=== PATIENT | male | born 1965 | race Caucasian/White ===

== ENCOUNTER 2021-02-21 17:30 | Emergency (ER) | payer SELFPAY ==
[~2021-02-21] VITALS: Ht 162.6 cm; Wt 54.5 kg
[2021-02-21 18:13] VITALS: BP 152/86
[2021-02-21] MEDS ORDERED: IV NORMAL SALINE 500ML BAG 500 ML IV ONE (18:30)
[2021-02-21] MEDS ORDERED: fentaNYL PF VIAL 100 MCG/2 ML VIAL IVP ONE (18:30)
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
[2021-02-21 19:00] LABS: BASO % 1 % (0-3); EOS # 0.2 x10^3/uL (0.0-0.7); EOS % 4 % (0-3); HEMATOCRIT 41.3 % (39.0-53.0); HEMOGLOBIN 14.1 g/dL (13.0-17.5); LYMPH # 1.9 x10^3/uL (1.0-4.8); LYMPH % 34 % (24-48); MEAN CORPUSCULAR HEMOGLOBIN 32 pg (25-35); MEAN CORPUSCULAR HGB CONC 34 g/dL (31-37); MEAN CORPUSCULAR VOLUME 93 fL (79-100); MONO # 0.6 x10^3/uL (0.0-1.1); MONO % 10 % (0-9); NEUT # 2.9 x10^3/uL (1.8-7.7); NEUT % 52 % (31-73); PLATELET COUNT 204 x10^3/uL (140-400); RED BLOOD COUNT 4.45 x10^6/uL (4.30-5.70); RED CELL DISTRIBUTION WIDTH 12.7 % (11.5-14.5); WHITE BLOOD COUNT 5.6 x10^3/uL (4.0-11.0)
[2021-02-21 19:06] LABS: CALCIUM 8.5 mg/dL (8.5-10.1); CREATININE 0.9 mg/dL (0.7-1.3); GFR 87.9; POTASSIUM 3.2 mmol/L (3.5-5.1)
[2021-02-21 19:09] LABS: PROTHROMBIN TIME PATIENT 12.3 SEC (11.7-14.0)
[2021-02-21 19:12] LABS: ALBUMIN 3.6 g/dL (3.4-5.0); ALBUMIN/GLOBULIN RATIO 1.2 (1.0-1.7); TOTAL BILIRUBIN 0.4 mg/dL (0.2-1.0); TOTAL PROTEIN 6.5 g/dL (6.4-8.2)
[2021-02-21] MEDS ORDERED: ALBU2.5V8 INH (19:20)
[2021-02-21] MEDS ORDERED: CONTRAST GIVEN. MC PRN (19:30)
[2021-02-21] MEDS ORDERED: IOHEXOL 300 MG/ML 100ML VIAL. IV ONE (19:30)
[2021-02-21] MEDS ORDERED: POTASSIUM CHLORIDE 20 MEQ TABLET.ER. PO ONE (19:45)
--- NOTE | 2021-02-21 20:11 | RAD ---
Exam: CT of abdomen and pelvis with contrast INDICATION: Left testicle and groin pain TECHNIQUE: Sequential axial images through the abdomen and pelvis obtained following the administrati on of 75 mL of Omni 300 IV contrast. Sagittal and coronal reformatted images were reconstructed from the axial data and reviewed. Exposure: One or more of the following in the visualized dose reduction techniques were utilized for this examination: 1. Automated exposure control 2. Adjustment of the MA and/or KV according to patient size 3. Use of iterative of reconstructive technique Comparisons: None FINDINGS: Heart size is normal. No pericardial effusion. Visualized lung bases are clear. No pleural effusion. Liver, spleen, pancreas, gallbladder and adrenals are unremarkable. No perinephric inflammation or hydronephrosis. No renal or ureteral calculi are identified. Bladder is decompressed not well evaluated. Prostate is not enlarged. Scattered diverticulosis noted in the sigmoid colon without evidence of acute diverticulitis. Appendi x is normal. Small bowel is unremarkable. No free intra-abdominal air or fluid. No obstruction. Abdominal aorta has a normal course and caliber. Abdominal vasculature is patent. No enlarged intra-abdominal lymph nodes are identified. No suspicious osseous lesions or acute fractures. IMPRESSION: 1. There is stranding and edema noted within the left inguinal canal. This is nonspecific. Correlati on with ultrasound is recommended. 2. Otherwise, no acute process identified in the abdomen or pelvis. Electronically signed by: Galdino Borrego MD (02/21/2021 8:09 PM) [facility]
--- NOTE | 2021-02-21 20:13 | RAD ---
EXAMINATION: US TESTICULAR (SCROTAL ULTRASOUND) CLINICAL HISTORY: Left testicle swelling and bruising TECHNIQUE: Sonography of the scrotal contents with color flow and spectral Doppler imaging of the ahmet ticular vasculature was performed. COMPARISON: None FINDINGS: RIGHT SCROTUM: - Right Testis: 3.1 x 2.4 x 1.7 cm. Homogeneous with no calcifications or mass. Normal intratestic ular arterial and venous flow with normal spectral waveforms. - Right Epididymis: Within normal limits. Vascular flow on Color Doppler symmetric to the contrala teral side. - Hydrocele: None. - Varicocele: Absent. LEFT SCROTUM: - Left Testis: 2.9 x 2.1 x 1.2 cm. Homogeneous with no calcifications or mass. Normal intratesticu lar arterial and venous flow with normal spectral waveforms. - Left Epididymis: Within normal limits. Vascular flow on Color Doppler symmetric to the contralat eral side. - Hydrocele: None. - Varicocele: Absent. IMPRESSION: Unremarkable scrotal ultrasound. Electronically signed by: West Murillo DO (02/21/2021 8:11 PM) [facility]
== END 2021-02-21 21:13 | disposition home or self-care (01) ==
LOC: ER 17:30
DX: S30.22XA Contusion of scrotum and testes, initial encounter (principal); W18.39XA Other fall on same level, initial encounter; Y93.89 Activity, other specified; Y92.89 Other specified places as the place of occurrence of the external cause; Y99.8 Other external cause status
CPT/HCPCS: 36415; 74177; 76870; 80053; 85025; 85610; 96361; 96374; 99285; J3010; J7040; Q9967

== ENCOUNTER → 2021-05-27 | Outpatient (CLI) | payer OTHER ==
[~2021-05-27] MED LIST: ALBU2.5V8 INH
--- NOTE | 2021-05-27 16:38 | RAD ---
EXAM: LUMBAR SPINE 2 VIEWS. HISTORY: Low back pain COMPARISON: 02/21/2021. FINDINGS: There is 7 mm retrolisthesis at L1-2. It measures 4 mm at L2-3. Mild loss of vertebral body height at T10 and T11 is not well visualized on this study but appears chronic. There is at least mo derate degenerative disc disease at T10-11. Degenerative disc disease is moderate at L5-S1. 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 There are atherosclerotic calcifications of the aorta. IMPRESSION: 1. Grade 1 degenerative retrolisthesis from L1 through L3. 2. Mild wedging of T10 and T11 is likely chronic, incompletely assessed on this exam. There is at erin st moderate degenerative disc disease at T10-11. Electronically signed by: Amari Contreras MD (05/27/2021 4:36 PM) [id number]
== END ==
LOC: RAD 13:36
PROVIDERS: ATTEND Anesthesiology Pain Medicine
DX: Z02.71 Encounter for disability determination (principal); M47.817 Spondylosis without myelopathy or radiculopathy, lumbosacral region; M51.37 Other intervertebral disc degeneration, lumbosacral region; M51.34 Other intervertebral disc degeneration, thoracic region; I70.0 Atherosclerosis of aorta; M43.16 Spondylolisthesis, lumbar region
CPT/HCPCS: 72100